=== PATIENT | male | born 2000 | race African-American/Black ===

== ENCOUNTER 2023-05-01 17:28 | Outpatient (REF) | payer MEDICAID, SELFPAY ==
[2023-05-01 18:43] LABS: Influenza A PCR POSITIVE (Negative); Influenza B PCR NEGATIVE (Negative); Resp Syncy Virus RNA Qual PCR NEGATIVE (Negative); SARS COV2 PCR INHOUSE NEGATIVE (Negative)
== END 2023-05-01 17:29 | disposition home or self-care (01) ==
LOC: HO.HHCLNP 17:28
PROVIDERS: Visit Provider Emergency Medicine
DX: J45.20 Mild intermittent asthma, uncomplicated (principal)
CPT/HCPCS: 0241U; 87070

== ENCOUNTER 2024-01-14 18:12 | Outpatient (REF) | payer MEDICAID, SELFPAY | END 2024-01-14 18:13 | disposition home or self-care (01) | LOC: HO.HHCLNP 18:12 | PROVIDERS: Visit Provider Nurse Practitioner Primary Care | DX: J02.9 Acute pharyngitis, unspecified (principal) | CPT/HCPCS: 36415; 87070; 87591 ==

== ENCOUNTER 2024-10-05 16:31 | Outpatient (REF) | payer MEDICAID, SELFPAY ==
--- OUTSIDE RECORDS SUMMARY | 2024-10-05 19:06 | XMS_ITS | Encounter Summary ---
Author Organization [employer] Address [address] [place] [id number] Care Team Providers Care Energy Scheduler Name Role Phone Charley Scott Primary Care Provider [phone] Encounter Details Date Type Department Care Team (Late st Contact Info) Description 10/05/2024 Orders Only [facility] [address] [place] [phone] Tete Grfifith MD [address] [place] [phone] Social History Tobacco Use Types Packs/Day Years Used Date Smoking Tobacco: Never Passive Smoke Exposure: Never Smokeless Tobacco: Never Alcohol Use Standard Drinks/Week Comments Never 0 (1 standard drink = 0.6 oz pur e alcohol) Depression Answer Date Recorded Patient Health Questionnaire-9 Score 10 08/27/2024 Patient Health Questionnaire-9 Score 10 08/27/2024 Last PHQ-9: Questionnaire Data Not on file 0 08/27/2024 Depression Answer Date Recorded Patient Health Questionnaire-2 Score 1 08/27/2024 Sex and Gender Information Value Date Recorded Sex Assigned at Male 02/11/2022 10:17 AM EDT Legal Sex Male 10:17 AM EDT Gender Identity Male 02/11/2022 10:17 AM EDT Sexual Orientation Straight 02/11/2022 10 :17 AM EDT documented as of this encounter Plan of Treatment Upcoming Encounters Date Type Department Care Team (Late st Contact Info) Description 11/01/2024 10:45 AM EDT Office Visit [facility] [address] [place] [phone] Charley Scott FNP [address] [place] [address] documented as of this encounter Procedures Procedure Name Priority Date/Time Associated Diagnosis Comments CANCELLED SEROLOGY Routine 10/05/2024 12 :00 PM EDT documented in this encounter Results * Cancelled Serology (10/05/2024 12:00 PM EDT) Cancelled Serology SEE NOTE [facility] Comment:THE FOLLOWING TESTS WERE CANCELLED: GI PANEL, GIARDIA AGSL, CRYPTOSPOR AGREASON: STOOL NOT IN PRESERVATIVE- LVM ON [facility] SECURE LINE 10/05/2024 12:0 0 PM EDT 10/05/2024 5:15 PM EDT Tete Tsai MD HISTORICAL/NON OR DERABLE LABS Final Result [facility] [address] [place] [phone] documented in this encounter Visit Diagnoses Not on filedocumented in this encounter Additional Health Concerns Assessment Noted Time PHQ-9 Depression Total Score: 10 025 11:22 AM EDT documented as of this encounter Care Teams Energy Scheduler Relationship Specialty Start Date End Date Sonia Charley [facility] [address] [place] [address] PCP - General Family Medicine 06/06/21 documented as of this encounter
== END 2024-10-05 16:32 | disposition home or self-care (01) ==
LOC: HO.HHCLNP 16:31
PROVIDERS: Visit Provider Student in an Organized Health Care Education/Training Program
DX: R19.7 Diarrhea, unspecified (principal)
CPT/HCPCS: 36415